=== PATIENT | male | born 1990 | race Caucasian/White ===

== ENCOUNTER 2024-03-24 21:11 | Emergency (ER) | payer OTHER ==
[~2024-03-24] VITALS: Ht 180.3 cm; Wt 70.0 kg
[2024-03-24 21:13] VITALS: BP 124/79; PULSE 89; RESP 18; TEMP 98.2; O2SAT 98
== END 2024-03-24 21:33 ==
LOC: ER 21:12
DX: Z04.1 Encounter for examination and observation following transport accident (principal); V89.2XXA Person injured in unspecified motor-vehicle accident, traffic, initial encounter; Y93.89 Activity, other specified; Y92.410 Unspecified street and highway as the place of occurrence of the external cause; Y99.8 Other external cause status
CPT/HCPCS: 99283